=== PATIENT | female | born 1970 | race Caucasian/White ===

== ENCOUNTER 2021-02-20 22:57 | Emergency (ER) | payer OTHER ==
[~2021-02-20 22:57] MED LIST: BACTRIM D.S. TAB1 EA PO; NASONEX SPRAY 117 GM; NORCO 10-325 T1 EACH PO; OMNICEF 300 MG300 MG PO; ZITHROMAX250 MG PO
[2021-02-20 23:43] LABS: HEMOGLOBIN 14.3 gm/dl (12.3-15.3); RED BLOOD COUNT 5.81 M/UL (4.00-5.10); WHITE BLOOD COUNT 15.9 K/UL (4.5-11.0)
[2021-02-21 00:31] LABS: BUN/CREATININE RATIO 18 (0-10)
[2021-02-21] MEDS ORDERED: PHENERGAN 12.12.5 M1 PO (01:59)
== END 2021-02-21 02:00 | disposition home or self-care (01) ==
LOC: ER1 22:57
PROVIDERS: Student in an Organized Health Care Education/Training Program
DX: G43.909 Migraine, unspecified, not intractable, without status migrainosus (principal); I10 Essential (primary) hypertension; R11.2 Nausea with vomiting, unspecified; J45.909 Unspecified asthma, uncomplicated; Z88.1 Allergy status to other antibiotic agents; Z88.8 Allergy status to other drugs, medicaments and biological substances
CPT/HCPCS: 36600; 71045; 80053; 82550; 82553; 82803; 83605; 83690; 83735; 83874; 84100; 84484; 84702; 85025; 93005; 94760; 96374; 96375; 99285; G0480; J1885; J2550; J2765; Q9967

== ENCOUNTER 2021-02-23 00:29 | Emergency (ER) | payer OTHER ==
[~2021-02-23 00:29] MED LIST changes: +PHENERGAN 12.12.5 M1 PO
[2021-02-23 00:52] LABS: HEMOGLOBIN 14.5 gm/dl (12.3-15.3); RED BLOOD COUNT 5.84 M/UL (4.00-5.10); WHITE BLOOD COUNT 13.2 K/UL (4.5-11.0)
[2021-02-23 01:11] LABS: BUN/CREATININE RATIO 13 (0-10)
[2021-02-23] MEDS ORDERED: ZOFRAN ODT 4 MG4 MG PO (04:18)
[2021-02-23] MEDS ORDERED: LODINE CAP 300300 MG PO (04:18)
[2021-02-23] MEDS ORDERED: BENTYL 20MG TAB20 MG PO (04:18)
== END 2021-02-23 05:15 | disposition home or self-care (01) ==
LOC: ER1 00:29
PROVIDERS: Physician Assistant
DX: R10.84 Generalized abdominal pain (principal); R11.2 Nausea with vomiting, unspecified; I10 Essential (primary) hypertension; J45.909 Unspecified asthma, uncomplicated; Z88.1 Allergy status to other antibiotic agents
CPT/HCPCS: 80053; 81001; 82150; 82550; 82553; 83605; 83690; 83874; 84484; 85025; 87086; 93005; 96374; 96375; 96376; 99284; J1885; J2405

== ENCOUNTER 2021-08-10 21:58 | Emergency (ER) | payer OTHER ==
[~2021-08-10 21:58] MED LIST changes: +BENTYL 20MG TAB20 MG PO; +LODINE CAP 300300 MG PO; +ZOFRAN ODT 4 MG4 MG PO
[2021-08-10 22:26] LABS: HEMOGLOBIN 12.8 gm/dl (12.3-15.3); RED BLOOD COUNT 5.23 M/UL (4.00-5.10); WHITE BLOOD COUNT 14.4 K/UL (4.5-11.0)
[2021-08-10 22:50] LABS: BUN/CREATININE RATIO 23 (0-10)
== END 2021-08-10 23:21 | disposition short-term general hospital (02) ==
LOC: ER1 21:58
PROVIDERS: Emergency Medicine
DX: I61.9 Nontraumatic intracerebral hemorrhage, unspecified (principal); Z20.822 Contact with and (suspected) exposure to COVID-19; G43.909 Migraine, unspecified, not intractable, without status migrainosus; Z88.8 Allergy status to other drugs, medicaments and biological substances; I10 Essential (primary) hypertension
CPT/HCPCS: 51702; 70450; 71045; 80053; 80307; 81001; 82140; 82550; 82553; 83605; 83735; 83874; 83880; 84100; 84439; 84443; 84484; 85025; 85610; 85730; 87040; 87086; 93005; 99285; G0480; J7030; Q9967; U0002

== ENCOUNTER 2021-10-04 12:05 | Emergency (ER) | payer OTHER | END 2021-10-04 13:50 | disposition home or self-care (01) | LOC: ER1 12:05 | DX: R53.1 Weakness (principal); I10 Essential (primary) hypertension; Z86.73 Personal history of transient ischemic attack (TIA), and cerebral infarction without residual deficits | CPT/HCPCS: 99284 ==

== ENCOUNTER 2022-04-04 10:36 | Observation (INO) | payer OTHER ==
[~2022-04-04] VITALS: Ht 162.6 cm; Wt 117.9 kg
[~2022-04-04 10:36] MED LIST changes: +ALBUTEROL2.5 MG/3 M INH; +AMLODIPINE BESY10 MG PO; +ATORVASTATIN CA40 MG PO; +CARVEDILOL6.25 MG PO; +CYMBALTA30 MG PO; +FUROSEMIDE40 MG PO; +LAMICTAL25 MG PO; +LORAZEPAM0.5 MG PO; +LOTRIMIN AF90 GM TP; +MONTELUKAST SOD10 MG PO; +POTASSIUM CHLO10 ME1 PO; +PROAIR HFA8.5 GM INH; +PROMETHAZINE HC25 M1 PO; +QUETIAPINE FUM100 MG PO; +ROPINIROLE HCL4 MG PO; +ZANAFLEX4 MG PO
[2022-04-04 12:23] LABS: HEMOGLOBIN 12.8 gm/dl (12.3-15.3); RED BLOOD COUNT 4.92 M/UL (4.00-5.10); WHITE BLOOD COUNT 7.6 K/UL (4.5-11.0)
[2022-04-04 12:45] LABS: BUN/CREATININE RATIO 21 (0-10)
[2022-04-04] MEDS ORDERED: LAMICTAL25 MG PO (16:04)
[2022-04-04] MEDS ORDERED: BUSPIRONE HCL5 MG PO (16:04)
[2022-04-04] MEDS ORDERED: LORAZEPAM0.5 MG PO (16:04)
[2022-04-04] MEDS ORDERED: ASPIRIN EC81 MG PO (16:05)
[2022-04-05 03:44] LABS: HEMOGLOBIN 11.8 gm/dl (12.3-15.3); RED BLOOD COUNT 4.53 M/UL (4.00-5.10); WHITE BLOOD COUNT 5.8 K/UL (4.5-11.0)
[2022-04-05 04:13] LABS: BUN/CREATININE RATIO 15 (0-10)
[2022-04-06 02:37] LABS: HEMOGLOBIN 11.8 gm/dl (12.3-15.3); RED BLOOD COUNT 4.52 M/UL (4.00-5.10); WHITE BLOOD COUNT 6.9 K/UL (4.5-11.0)
[2022-04-06 03:06] LABS: BUN/CREATININE RATIO 19 (0-10)
[2022-04-07 06:46] LABS: HEMOGLOBIN 11.9 gm/dl (12.3-15.3); RED BLOOD COUNT 4.57 M/UL (4.00-5.10); WHITE BLOOD COUNT 6.1 K/UL (4.5-11.0)
[2022-04-07 07:08] LABS: BUN/CREATININE RATIO 17 (0-10)
[2022-04-09 03:47] LABS: BUN/CREATININE RATIO 18 (0-10)
[2022-04-09 04:13] LABS: HEMOGLOBIN 13.1 gm/dl (12.3-15.3); RED BLOOD COUNT 5.01 M/UL (4.00-5.10); WHITE BLOOD COUNT 5.3 K/UL (4.5-11.0)
--- NOTE | 2022-04-09 15:20 | NUR ---
1210: PATIENT REQUESTS TO BE MADE A DNR/DNI. RN EXPLAINED THAT SHE WOULD NEED TO DISCUSS THAT WITH DR. PATIENT INSISTS THAT SHE WANTS STATUS CHANGED NOW. RN UPDATED DR ARROYO, WITH PATIENTS REQUEST. VERBAL ORDER RECEIVED AND ENTERED TO CHANGE STATUS TO DNR/DNI.
--- NOTE | 2022-04-10 12:00 | NUR ---
REPORT CALLED TO JOHNATHAN AT [facility]. EMS CALLED AT 1235 TO TRANPORT PATIENT.
--- NOTE | 2022-04-11 16:07 | NUR ---
AMBULANCE TRANSPORT REQUEST WAS PUT IN 04/10/2022. AMBULANCE DID NOT SHOW UP ON REQUESTED DATE. NURSE AND SPRAGGER CALLED THE AMBULANCE SERVICE 04/11/2022 TO REQUEST UPDATE ON TRANSPORT REQUEST WITH NO SUCCESS. CONSUELO
== END 2022-04-11 23:09 | disposition short-term general hospital (02) ==
LOC: ER1 10:36 → M/S 15:33 → CDU 15:33 → M/S 15:33
PROVIDERS: Internal Medicine; Physician Assistant; ADMIT Internal Medicine
DX: R53.1 Weakness (principal); I10 Essential (primary) hypertension; F31.9 Bipolar disorder, unspecified; J44.9 Chronic obstructive pulmonary disease, unspecified; E78.5 Hyperlipidemia, unspecified; Z59.00 Homelessness unspecified; Z86.73 Personal history of transient ischemic attack (TIA), and cerebral infarction without residual deficits; Z88.1 Allergy status to other antibiotic agents; Z88.8 Allergy status to other drugs, medicaments and biological substances; Z20.822 Contact with and (suspected) exposure to COVID-19
CPT/HCPCS: 36415; 70450; 71045; 80048; 80053; 82550; 82553; 83735; 84484; 85025; 85027; 91301; 93005; 94640; 94664; 94760; 96374; 96375; 96376; 97110; 97116-GP-CQ; 97161; 97166; 97530; 97530-GP-CQ; 99285; G0378; J2360; J2405; U0002